=== PATIENT | male | born 1980 | race Caucasian/White ===

== ENCOUNTER 2020-06-02 12:42 | Emergency (ER) | payer BC, OTHER ==
[~2020-06-02] VITALS: Ht 180.3 cm; Wt 131.5 kg
[2020-06-02] MEDS ORDERED: NITROGLYCERIN 0.4 MG SL TAB SL ONE (13:00)
[2020-06-02] MEDS ORDERED: ASPirin 81 mg TAB PO ONE (13:00)
[2020-06-02 13:46] LABS: Basophils # (auto) 0.1 10 ^3/uL (0-0.2); Basophils % (auto) 0.6 % (0.0-2.0); Eosinophils # (auto) 0.3 10 ^3/uL (0-0.8); Eosinophils % (auto) 3.1 % (0.0-7.0); Hematocrit 43.7 % (41.0-53.0); Hemoglobin 15.1 g/dL (13.5-17.5); Lymphocytes # (auto) 1.6 10 ^3/uL (0.4-5.4); Mean Corpuscular Hemoglobin 28.8 pg (28.0-32.0); Mean Corpuscular Hgb Conc. 34.5 g/dL (32.0-36.0); Mean Corpuscular Volume 83.4 fL (80.0-100.0); Monocytes # (auto) 0.9 10 ^3/uL (0-1.3); Monocytes % (auto) 9.5 % (0.0-12.0); Neutrophils % (auto) 70.8 % (37.0-80.0); Nucleated Red Blood Cells % 0.2 %; Platelet Count (auto) 201 10^3/uL (140-450); Red Blood Cells 5.24 10^6/uL (4.5-5.90); Red Cell Distribution Width 13.1 % (11.8-14.3); White Blood Cell 9.9 10^3/uL (4.4-10.8)
[2020-06-02 14:02] LABS: INR 1.01 (0.9-1.15); Partial Thromboplastin Time 27.7 sec (23.64-32.05)
[2020-06-02 14:11] LABS: Albumin 3.7 g/dL (3.4-5.0); Anion Gap 3 (5-15); Blood Urea Nitrogen 12 mg/dL (7-18); Calcium 8.8 mg/dL (8.5-10.1); Carbon Dioxide 30 mmol/L (21-32); Chloride 106 mmol/L (98-107); Glucose 154 mg/dL (74-106); Potassium 3.6 mmol/L (3.5-5.1); Sodium 139 mmol/L (136-145)
[2020-06-02 14:20] LABS: Alanine Aminotransferase 65 U/L (16-61); Alkaline Phosphatase 56 U/L (45-117); Aspartate Aminotransferase 31 U/L (15-37); Bilirubin, Total 0.5 mg/dL (0.2-1.0); GFR African American 96 mL/min; GFR Non-African American 79 mL/min; Total Protein 7.7 g/dL (6.4-8.2)
[2020-06-02 15:55] VITALS: BP 138/80
== END 2020-06-02 15:56 | disposition other institution (70) ==
LOC: ER 12:42
DX: I24.9 Acute ischemic heart disease, unspecified (principal)
CPT/HCPCS: 36415; 71046; 80053; 84484; 85025; 85610; 85730; 93005

== ENCOUNTER 2020-06-05 18:47 | Emergency (ER) | payer BC, OTHER ==
[~2020-06-05] VITALS: Ht 180.3 cm; Wt 131.5 kg
[2020-06-05 22:30] LABS: Basophils # (auto) 0.1 10 ^3/uL (0-0.2); Basophils % (auto) 0.6 % (0.0-2.0); Eosinophils # (auto) 0.2 10 ^3/uL (0-0.8); Eosinophils % (auto) 1.3 % (0.0-7.0); Hematocrit 49.7 % (41.0-53.0); Hemoglobin 16.6 g/dL (13.5-17.5); Lymphocytes # (auto) 1.6 10 ^3/uL (0.4-5.4); Lymphocytes % (auto) 12.3 % (10.0-50.0); Mean Corpuscular Hemoglobin 28.3 pg (28.0-32.0); Mean Corpuscular Hgb Conc. 33.4 g/dL (32.0-36.0); Mean Corpuscular Volume 84.7 fL (80.0-100.0); Monocytes # (auto) 0.9 10 ^3/uL (0-1.3); Monocytes % (auto) 6.7 % (0.0-12.0); Neutrophils # (auto) 10.3 10 ^3/uL (1.6-8.6); Neutrophils % (auto) 79.1 % (37.0-80.0); Nucleated Red Blood Cells % 0.1 %; Platelet Count (auto) 233 10^3/uL (140-450); Red Blood Cells 5.87 10^6/uL (4.5-5.90); Red Cell Distribution Width 12.8 % (11.8-14.3); White Blood Cell 13.1 10^3/uL (4.4-10.8)
[2020-06-05 22:45] VITALS: BP 121/75
[2020-06-05 22:45] LABS: INR 1.13 (0.9-1.15)
[2020-06-05 22:49] LABS: Anion Gap 6 (5-15); Blood Urea Nitrogen 13 mg/dL (7-18); Calcium 8.9 mg/dL (8.5-10.1); Carbon Dioxide 26 mmol/L (21-32); Chloride 106 mmol/L (98-107); Glucose 99 mg/dL (74-106); Potassium 4.3 mmol/L (3.5-5.1); Sodium 138 mmol/L (136-145)
[2020-06-05 22:52] LABS: Alanine Aminotransferase 85 U/L (16-61); Alkaline Phosphatase 58 U/L (45-117); Aspartate Aminotransferase 43 U/L (15-37); Bilirubin, Total 0.9 mg/dL (0.2-1.0); GFR African American 106 mL/min; GFR Non-African American 88 mL/min; Total Protein 7.8 g/dL (6.4-8.2)
== END 2020-06-05 22:59 | disposition home or self-care (01) ==
LOC: ER 18:47
DX: S29.011A Strain of muscle and tendon of front wall of thorax, initial encounter (principal); R74.8 Abnormal levels of other serum enzymes; R42 Dizziness and giddiness; X58.XXXA Exposure to other specified factors, initial encounter; Y93.89 Activity, other specified; Y92.89 Other specified places as the place of occurrence of the external cause; Y99.8 Other external cause status
CPT/HCPCS: 36415; 71046; 80053; 84484; 85025; 85379; 85610; 85730; 93005

== ENCOUNTER 2020-06-14 16:44 | Emergency (ER) | payer BC, OTHER ==
[~2020-06-14] VITALS: Ht 180.3 cm; Wt 127.0 kg
[2020-06-14 20:58] VITALS: BP 150/91
[2020-06-14] MEDS ORDERED: methylPREDNISolone SOD SUCC 125 MG/2 ML VL IM ONE (21:00)
[2020-06-14] MEDS ORDERED: KETOROLAC TROMETH 60MG/2ML VIAL IM ONE (21:00)
== END 2020-06-14 22:42 | disposition home or self-care (01) ==
LOC: ER 16:44
DX: G44.209 Tension-type headache, unspecified, not intractable (principal); R42 Dizziness and giddiness; R55 Syncope and collapse
CPT/HCPCS: 70450; 96372; 99284; J1885; J2930

== ENCOUNTER 2023-11-24 16:33 | Emergency (ER) | payer BC, OTHER ==
[~2023-11-24] VITALS: Ht 180.3 cm; Wt 127.2 kg
[2023-11-24 17:31] VITALS: BP 113/61; TEMP 97.7
[2023-11-24] MEDS ORDERED: GABA-339 PO ×2 (17:40)
[2023-11-24] MEDS ORDERED: BACL10TA PO ×3 (17:40→18:05)
[2023-11-24] MEDS ORDERED: HYDROcodone-ACET 5/325MG TAB PO ONE (17:45)
[2023-11-24] MEDS ORDERED: KETOROLAC TROMETH 60MG/2ML VIAL IM ONE (17:45)
[2023-11-24 18:03] VITALS: PULSE 97; RESP 16; O2SAT 98
[2023-11-24] MEDS ORDERED: TRAM50TA2 PO (18:03)
== END 2023-11-24 18:06 | disposition home or self-care (01) ==
LOC: ER 16:33
DX: S39.012A Strain of muscle, fascia and tendon of lower back, initial encounter (principal); M47.816 Spondylosis without myelopathy or radiculopathy, lumbar region; V98.8XXA Other specified transport accidents, initial encounter; Y93.I9 Activity, other involving external motion; Y92.488 Other paved roadways as the place of occurrence of the external cause; Y99.8 Other external cause status
CPT/HCPCS: 72100; 96372; 99283; J1885